=== PATIENT | female | born 1975 | race Two or more races ===

== ENCOUNTER 2019-12-13 05:42 | Day surgery (SDC) | payer OTHER ==
[~2019-12-13 05:42] MED LIST: HUMALOG100 UNIT/2; LANTUS SOL100 UNIT/1; NEURONTIN800 MG PO
== END 2019-12-13 12:20 | disposition home or self-care (01) ==
LOC: CIR.AMB 05:42
PROVIDERS: ATTEND Orthopaedic Surgery Hand Surgery
DX: G56.02 Carpal tunnel syndrome, left upper limb (principal); Z20.828 Contact with and (suspected) exposure to other viral communicable diseases

== ENCOUNTER 2021-01-01 06:35 | Day surgery (SDC) | payer OTHER ==
[~2021-01-01 06:35] MED LIST changes: +PROVENTIL HFA6.7 GM IH
== END 2021-01-01 13:45 | disposition home or self-care (01) ==
LOC: CIR.AMB 06:35
PROVIDERS: ATTEND Orthopaedic Surgery Hand Surgery
DX: G56.02 Carpal tunnel syndrome, left upper limb (principal); Z20.822 Contact with and (suspected) exposure to COVID-19